=== PATIENT | female | born 1955 | race Caucasian/White ===

== ENCOUNTER 2018-01-06 16:55 | Emergency (ER) | payer OTHER ==
[~2018-01-06] VITALS: Ht 165.1 cm; Wt 85.7 kg
--- NOTE | ~2018-01-06 | EKG ---
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
[2018-01-06 17:48] LABS: BASOPHILS 0.8 % (0.0-2.0); EOSINOPHILS 2.8 % (0.0-3.0); HEMATOCRIT 33.5 % (37.0-47.0); HEMOGLOBIN 10.9 gm/dL (12.0-15.0); MCH 28.8 pg (26.0-34.0); MCHC 32.6 g/dL (28.0-37.0); MCV 88.3 fL (80.0-100.0); MONOCYTES 11.2 % (1.0-8.0); PLATELET COUNT 238 thou/uL (150-400); POLYS 61.2 % (36.0-66.0); RBC 3.79 mil/uL (4.20-5.00); RDW 14.1 % (10.5-14.5); WBC 11.5 thou/uL (4.0-11.0)
[2018-01-06 18:07] LABS: ANION GAP 3 mmol/L (7-16); BUN 16 mg/dL (7-18); CHLORIDE 107 mmol/L (98-107); CO2 30 mmol/L (21-32); CREATININE 0.9 mg/dL (0.6-1.0); GLUCOSE 111 mg/dL (74-106); POTASSIUM 3.9 mmol/L (3.5-5.1); SODIUM 140 mmol/L (136-145)
[2018-01-06 18:11] LABS: DIRECT BILIRUBIN 0.1 mg/dL (<0.1-0.3); SGOT 28 U/L (15-37); SGPT 22 U/L (30-65); TOTAL BILIRUBIN 0.5 mg/dL (<0.1-1.0)
[2018-01-06 18:46] LABS: URINE BILIRUBIN NEGATIVE (Negative); URINE BLOOD NEGATIVE (Negative); URINE CLARITY CLEAR; URINE COLOR YELLOW; URINE GLUCOSE-RANDOM* NEGATIVE (Negative); URINE KETONES NEGATIVE (Negative); URINE LEUKOCYTES NEGATIVE (Negative); URINE NITRITE NEGATIVE (Negative); URINE PROTEIN (DIPSTICK) NEGATIVE (Negative); URINE UROBILINOGEN 0.2 E.U./dl (0.2-1.0)
[2018-01-06] MEDS ORDERED: LIORESAL 10 MG10 MG PO (19:47)
[2018-01-06] MEDS ORDERED: LIPITOR 20 MG T20 M1 PO (19:47)
[2018-01-06] MEDS ORDERED: CARVEDILOL6.25 M1 PO (19:48)
[2018-01-06] MEDS ORDERED: CATAPRES0.1 MG PO (19:49)
[2018-01-06] MEDS ORDERED: FLEXERIL PO (19:49)
[2018-01-06] MEDS ORDERED: FENTANYL PATCH75 MCG TRANSDERM (19:50)
[2018-01-06] MEDS ORDERED: NEXIUM40 MG PO (19:50)
[2018-01-06] MEDS ORDERED: AMPYRA10 MG PO (19:50)
[2018-01-06] MEDS ORDERED: GABAPENTIN800 M1 PO (19:53)
[2018-01-06] MEDS ORDERED: CLARITIN10 MG PO (19:54)
[2018-01-06] MEDS ORDERED: SYNTHROID150 MCG PO (19:54)
[2018-01-06] MEDS ORDERED: LISINOPRIL10 MG PO (20:25)
[2018-01-06] MEDS ORDERED: MACRODANTIN50 M1 PO (20:26)
[2018-01-06] MEDS ORDERED: SINGULAIR 10 MG10 M1 PO (20:26)
[2018-01-06] MEDS ORDERED: REGLAN 10 MG TA10 MG PO (20:26)
[2018-01-06] MEDS ORDERED: DITROPAN XL10 M1 PO (20:27)
[2018-01-06] MEDS ORDERED: PERCOCET 7.5-31 EACH PO (20:27)
[2018-01-06] MEDS ORDERED: LYRICA 75 MG CA75 MG PO (20:28)
[2018-01-06] MEDS ORDERED: KLOR-CON 1010 MEQ PO (20:28)
[2018-01-06] MEDS ORDERED: DEMADEX20 MG PO ×2 (20:29→20:30)
[2018-01-06] MEDS ORDERED: ZOLOFT50 MG PO (20:29)
[2018-01-06] MEDS ORDERED: IMITREX 25 MG T25 M1 PO (20:29)
[2018-01-06] MEDS ORDERED: TRAZODONE HCL50 MG PO (20:30)
[2018-01-06] MEDS ORDERED: EFFEXOR XR75 MG PO (20:30)
[2018-01-06 20:33] VITALS: BP 100/58
== END 2018-01-06 20:35 | disposition short-term general hospital (02) ==
LOC: ER 16:55
PROVIDERS: Emergency Medicine
DX: R41.82 Altered mental status, unspecified (principal); G89.18 Other acute postprocedural pain; M54.9 Dorsalgia, unspecified; R79.89 Other specified abnormal findings of blood chemistry; Z88.1 Allergy status to other antibiotic agents; Z88.5 Allergy status to narcotic agent